=== PATIENT | female | born 1985 | race Asian ===

== ENCOUNTER 2017-03-21 21:39 | Emergency (ER) | payer OTHER ==
[2017-03-21 23:01] VITALS: BMI 24.0
[2017-03-22] MEDS ORDERED: FOLIC ACID INJECTION - 1 MG, THIAMINE HCL 100 MG, MULTIVIT INJECTION ADULT 10 ML in SOD... IVPB ONE (01:26)
[2017-03-22 01:42] LABS: MCH 28.2 pg (25.7-33.7); MEAN CELL VOLUME 85.7 fl (80-96); MEAN PLT VOLUME 7.6 fl (7.5-11.1); NEUTROPHILS 69.6 % (42.8-82.8); PLATELET COUNT 282 K/MM3 (134-434); RDW 13.7 % (11.6-15.6); WHITE BLOOD COUNT 10.1 K/mm3 (4.0-10.0)
[2017-03-22 02:24] LABS: ALBUMIN 3.5 g/dl (3.4-5.0); ALK PHOS 60 U/L (45-117); ANION GAP 14 (8-16); BILIRUBIN,TOTAL 0.8 mg/dL (0.2-1.0); CALCIUM 8.2 mg/dL (8.5-10.1); CO2 26 mmol/L (21-32); COCKROFT - GAULT 134.9375; CREATININE 0.6 mg/dL (0.55-1.02); GLUCOSE,RANDOM 90 mg/dL (74-106); SGOT/AST 332 U/L (15-37); SGPT/ALT 97 U/L (12-78); TOT PROT 6.9 g/dl (6.4-8.2)
[2017-03-22] MEDS ORDERED: POTASSIUM CHLORIDE 20 MEQ PREMIX IVPB 100 ML IVPB ONE (03:06)
--- NOTE | 2017-03-22 03:23 | PDOC ---
History of Present Illness - General Chief Complaint: Pain Stated Complaint: FOOT PAIN Time Seen by Provider: 03/21/17 23:57 - History of Present Illness Initial Comments: 03/22/17 03:20 CHIEF COMPLAINT: feet hurt HISTORY OF PRESENT ILLNESS: 31 yo F with no PMH presents to ED with foot pain and abdominal pain. Patient reports that she is homeless and has been walking for 2 days straight because she got lost looking for food after leaving the [facility]. She reports that she doesn't feel safe at the [facility] because she thinks she's going to be homeless again, and that she will need surgery for her mental illness "because that's what people say about me, that I have a mental illness and that I need a surgery on my head." She reports that most recently was staying at the [facility] and prior to that was at [facility]. She is tearful and states that her family "abandoned me." She reports that last time she drank alcohol was when she was 14 years old, and the last time she had sexual activity was also when she was [age] years old. She does feel depressed but denies any SI or HI. She states she would like to see a psychiatrist. No recent travel or sick contacts. PAST MEDICAL HISTORY: Denies past medical history FAMILY HISTORY: Denies SOCIAL HISTORY: Denies tobacco, alcohol, illicit drug use. SURGICAL HISTORY: Denies ALLERGIES: No known drug allergies REVIEW OF SYSTEMS General/Constitutional: Denies fever or chills. Denies weakness, weight change. HEENT: Denies change in vision. Denies ear pain or discharge. Denies sore throat. Cardiovascular: Denies chest pain or shortness of breath. Respiratory: Denies cough, wheezing, or hemoptysis. Gastrointestinal: "My stomach hurts in the middle." Denies nausea, vomiting, diarrhea or constipation. Denies rectal bleeding. Genitourinary: Denies dysuria, frequency, or change in urination. Musculoskeletal: Denies joint or muscle swelling or pain. Denies neck or back pain. Skin and breasts: "My feet hurt after walking for so long." PHYSICAL EXAM General Appearance: Disheveled, foul smelling. No apparent distress. HEENT: EOMI, PERRLA, normal ENT inspection, normal voice, TMs normal, pharynx normal. No conjunctival pallor. No photophobia, scleral icterus. Neck: Supple. Trachea midline. No tenderness, rigidity, carotid bruit, stridor , lymphadenopathy, or thyromegaly. Respiratory/Chest: Lungs CTAB. Cardiovascular: RRR. S1, S2. Vascular Pulses: Dorsalis-Pedis (R): 2+, Dorsalis-Pedis (L): 2+ Gastrointestinal/Abdominal: RUQ and epigastric tenderness on palpation. Normal bowel sounds. Abdomen soft, non-distended. No rebound tenderness. No organomegaly, pulsatile mass, guarding, hernia, splenomegaly. Musculoskeletal/Extremities: Erythema to heels bilaterally with blisters to right heel and callous to left heel. Normal inspection. FROM of all extremities , normal capillary refill. Pelvis Stable. No CVA tenderness. No tenderness to extremities, pedal edema, swelling, erythema or deformity. Integumentary: Appropriate color, dry, warm. No cyanosis, erythema, jaundice or rash Neurologic: knit goods washer II-XII intact. Fully oriented, alert. Appropriate mood/affect. Motor strength 5/5. No appreciable EOM palsy, facial droop or sensory deficit. Psychiatric: Tearful, depressed affect. Timing/Duration: unsure Past History - Past Medical History Allergies/Adverse Reactions: Allergies Allergy/AdvReac Type Severity Reaction Status Date / Time No Known Allergies Allergy Verified 03/21/17 22:59 Home Medications: Ambulatory Orders NK [No Known Home Medication] 03/22/17 - Psycho/Social/Smoking Cessation Hx Suicidal Ideation: No Smoking History: Unknown if ever smoked Information on smoking cessation initiated: No Hx Alcohol Use: No Drug/Substance Use Hx: No *Physical Exam - Vital Signs Last Vital Signs Temp Pulse Resp BP Pulse Ox 98.4 F 109 H 14 116/56 96 03/21/17 22:59 03/21/17 22:59 03/21/17 22:59 03/21/17 22:59 03/21/17 22:59 ED Treatment Course - LABORATORY CBC & Chemistry Diagram: 03/22/17 01:30 03/22/17 07:50 - ADDITIONAL ORDERS Additional order review: Laboratory Results 03/22/17 03/22/17 01:30 01:30 Sodium 141 Potassium 2.7 L* Chloride 101 Carbon Dioxide 26 Anion Gap 14 BUN 14 Creatinine 0.6 Creat Clearance w eGFR > 60 Random Glucose 90 Calcium 8.2 L Total Bilirubin 0.8 AST 332 H ALT 97 H Alkaline Phosphatase 60 Total Protein 6.9 Albumin 3.5 Lipase 107 Serum , Qual Negative 03/22/17 01:30 RBC 4.05 MCV 85.7 MCHC 33.0 RDW 13.7 MPV 7.6 Neutrophils % 69.6 Lymphocytes % 18.7 Monocytes % 6.7 Eosinophils % 4.0 Basophils % 1.0 - RADIOLOGY Radiology Studies Ordered: Category Date Time Status FOOT-LEFT [RAD] Stat Radiology 03/22/17 01:22 Taken FOOT-RIGHT [RAD] Stat Radiology 03/22/17 01:22 Taken Medical Decision Making - Medical Decision Making 03/22/17 06:16 31 yo F with no PMH presents to ED with foot pain and abdominal pain. -CBC, CMP, lipase -b/l foot x-ray Labs: WBC 10.9, K+ 2.7, AST 332, ALT 97 -KCl IVPB and oral -Abdomen and pelvis CT CT results: FINDINGS: Normal liver except for probable tiny cyst at the dome. Contracted gallbladder. Normal pancreas. Normal spleen. Normal adrenal glands. Normal kidneys urinary tracts and urinary bladder. No bowel obstruction free air or free fluid. Negative for diverticulitis or colitis. Normal appendix noted. No acute intra-abdominal abnormalities. Read by: Sky Gupta MD Psych and social work consult am. 03/22/17 06:46 Case discussed in detail with oncoming emergency provider including history, physical exam and ancillary studies. In brief, this patient is being seen in the ED for a chief complaint of: foot pain, abdominal pain I have completed the initial assessment interview note and have ordered the following labs: CBC, CMP, lipase I have reviewed the following results: labs Pending results: repeat CMP, psych/social work consult Plan for disposition as follows: discharge Oncoming WINSTONPaz Ta has assumed care for the patient and will complete the evaluation and treatment. *DC/Admit/Observation/Transfer Diagnosis at time of Disposition: Homelessness - Discharge Dispostion Disposition: HOME Condition at time of disposition: Good - Patient Instructions Additional Instructions: Discharge Instructions: -Return to the ER with any worsening or concerning symptoms
[2017-03-22] MEDS ORDERED: KCL 10 MEQ IVPB 100 ML IVPB ONE (03:31)
[2017-03-22] MEDS ORDERED: POTASSIUM CHLORIDE TABS 20 MEQ TABLET.ER (FP) PO ONE ×2 (05:02→05:39)
[2017-03-22] MEDS ORDERED: ONDANSETRON *ODT* 4 MG TABLET ONE (05:39)
--- NOTE | 2017-03-22 07:46 | PDOC ---
[id number] 116/56 96 03/21/17 22:59 03/21/17 22:59 03/21/17 22:59 03/21/17 22:59 03/21/17 22:59 ED Treatment Course - LABORATORY CBC & Chemistry Diagram: 03/22/17 01:30 03/22/17 07:50 - ADDITIONAL ORDERS Additional order review: Laboratory Results 03/22/17 03/22/17 01:30 01:30 Sodium 141 Potassium 2.7 L* Chloride 101 Carbon Dioxide 26 Anion Gap 14 BUN 14 Creatinine 0.6 Creat Clearance w eGFR > 60 Random Glucose 90 Calcium 8.2 L Total Bilirubin 0.8 AST 332 H ALT 97 H Alkaline Phosphatase 60 Total Protein 6.9 Albumin 3.5 Lipase 107 Serum , Qual Negative 03/22/17 01:30 RBC 4.05 MCV 85.7 MCHC 33.0 RDW 13.7 MPV 7.6 Neutrophils % 69.6 Lymphocytes % 18.7 Monocytes % 6.7 Eosinophils % 4.0 Basophils % 1.0 - Medications Given in the ED: ED Medications Discontinued Medications Generic Name Dose Route Start Last Admin Trade Name Freq PRN Reason Stop Dose Admin Potassium Chloride 20 meq 03/22/17 03:06 03/22/17 03:38 Potassium Chloride 20 Meq Premix Ivpb - IVPB 03/22/17 03:07 20 meq ONCE ONE Administration Potassium Chloride 40 meq 03/22/17 05:02 03/22/17 05:51 K-Dur - PO 03/22/17 05:03 40 meq ONCE ONE Administration Medical Decision Making - Medical Decision Making 03/22/17 07:46 Patient received in sign out from WINSTON Bustamante. Patient awaiting geriatric social work professor, psychiatrist and repeat potassium secondary to potassium of 2.7 and was given Replacement. Dr. Ashraf had called and feels patient needs to be seen by a geriatric social work professor since patient is not homicidal, suicidal, feeling hopeless, or hearing voices. 03/22/17 08:44 I went to evaluate this patient myself and not only does her life story seem distorted but also her stated she just 23 despite her date of being 31 which she states is her date of . Patient also states disclosed after much questioning that she used to be on Lamictal, Risperdal, and Zyprexa. Patient is disheveled, blisters to the bottom of her feet, soiled underwear, and has uncut nails. I do believe this patient this point needs psychiatric evaluation and placement. As we discussed case with Dr. Ashraf and states he will evaluate patient at around 1:30 pm. 03/22/17 09:01 Laboratory Tests 03/22/17 07:50 Sodium 140 Potassium 3.5 D Chloride 105 Carbon Dioxide 26 Anion Gap 9 BUN 16 Creatinine 0.5 L Random Glucose 117 H D Calcium 8.3 L Total Bilirubin 0.7 AST 411 H D ALT 110 H 03/22/17 10:41 Patient awaiting geriatric social work professor for evaluation. Patient will be given a tray of food and will be be given socks and new underwear. 03/22/17 15:04 Patient was seen by Dr. Kunz who feels patient needs to return to her program at [facility]. Call made to the geriatric social work professor to arrange transportation since he feels patient is not harmful to herself or others. 03/22/17 15:38 protective services case worker aware of [facility] in [place] and will attempt to arrange transportation 03/22/17 18:01 Called case management and left a message on the voicemail. Also called geriatric social work professor to find out status of transportation with no callback. Patient currently resting and in no distress. Will repeat vitals. *DC/Admit/Observation/Transfer Diagnosis at time of Disposition: Homelessness - Discharge Dispostion Disposition: HOME Condition at time of disposition: Good - Patient Instructions Additional Instructions: Discharge Instructions: -Return to the ER with any worsening or concerning symptoms
[2017-03-22 08:29] LABS: ALBUMIN 3.6 g/dl (3.4-5.0); ALK PHOS 56 U/L (45-117); ANION GAP 9 (8-16); BILIRUBIN,TOTAL 0.7 mg/dL (0.2-1.0); CALCIUM 8.3 mg/dL (8.5-10.1); CO2 26 mmol/L (21-32); CREATININE 0.5 mg/dL (0.55-1.02); GLUCOSE,RANDOM 117 mg/dL (74-106); SGPT/ALT 110 U/L (12-78); TOT PROT 6.7 g/dl (6.4-8.2)
[2017-03-22 08:36] LABS: SGOT/AST 411 U/L (15-37)
--- NOTE | 2017-03-22 11:31 | EKG ---
Test Reason : Blood Pressure : / mmHG Vent. Rate : 095 BPM Atrial Rate : 095 BPM P-R Int : 146 ms QRS Dur : 090 ms QT Int : 406 ms P-R-T Axes : 052 058 025 degrees QTc Int : 510 ms NORMAL SINUS RHYTHM T WAVE ABNORMALITY, CONSIDER ANTERIOR ISCHEMIA PROLONGED QT ABNORMAL ECG NO PREVIOUS ECGS AVAILABLE Confirmed by EDNA LOZANO MD ([id number]) on 03/22/2017 11:31:08 AM Referred By: Confirmed By:EDNA LOZANO MD
--- NOTE | 2017-03-22 15:07 | CON.PSY ---
Psychiatry Consult Chief Complaint: Patient wioth a history of chronic mental illness, recently discharged from [facility]. Leilani westbrook been at [facility] and went to [facility] and got lost, Patient denies any acute commanding hallucinations at this time. [facility] - Previous Psychiatric Treatment Outpatient: Less than 6 mos ago Inpatient: 2 or more prior admissions - Previous Substance Abuse Treatment Outpatient: None Inpatient: None - Reason for Previous Treatment Reason for Previous Treatment: Psychotic Episode - Allergies Allergies: Allergies Allergy/AdvReac Type Severity Reaction Status Date / Time No Known Allergies Allergy Verified 03/21/17 22:59 - Current Living Status Usual Living Arrangement: Assisted Living - Current Mental Status Evaluation Appearance: Disheveled Attitude: Guarded - Affect Affect: Constrictive Appropriateness: Appropriate to Content - Mood Mood: Anxious - Speech/Language Expressive: Coherent Receptive: Age Appropriate Comprehension of Spoken Words - Psychomotor Activity Psychomotor Activity: Slowed - Thought Process Thought Process: Intact - Thought Content Hallucinations: Absent Delusions: Absent - Self Perception Self Perception: No Impairment - Cognition Attention: Alert Orientation: Time Memory, Immediate Recall: Intact Memory, Short Term: 2/3 Memory, Remote with Promptin/3 - Concentration Serial Sevens Intact: No Simple Calculations Intact: No - Abstraction Proverb Interpretation: Impaired Judgement: Minimally Impaired - Insight Insight: Impaired - Impulse Control Impulse Control: Minimally Impaired - Suicidal Ideation Suicidal Ideation: No - Homicidal Ideation Homicidal Ideation: No Assessment/Plan 1) Patient is not acutely suicidal or Homicidal at this time. 2) Send patient back [facility].
--- NOTE | 2017-03-23 07:53 | PDOC ---
ED Treatment Course - LABORATORY CBC & Chemistry Diagram: 03/22/17 01:30 03/22/17 07:50 - ADDITIONAL ORDERS Additional order review: 03/22/17 01:30 RBC 4.05 MCV 85.7 MCHC 33.0 RDW 13.7 MPV 7.6 Neutrophils % 69.6 Lymphocytes % 18.7 Monocytes % 6.7 Eosinophils % 4.0 Basophils % 1.0 - Medications Given in the ED: ED Medications Discontinued Medications Generic Name Dose Route Start Last Admin Trade Name Jose Luis PRN Reason Stop Dose Admin Folic Acid 1 mg/ Thiamine HCl 1,000 mls @ 125 mls/hr 03/22/17 01:26 03/22/17 02 :22 100 mg/ Multivitamins/Minerals IVPB 03/22/17 09:25 125 mls/hr 10 ml/ Sodium Chloride ONCE ONE Administration Potassium Chloride 20 meq 03/22/17 03:06 03/22/17 03:38 Potassium Chloride 20 Meq Premix Ivpb - IVPB 03/22/17 03:07 20 meq ONCE ONE Administration Potassium Chloride 40 meq 03/22/17 05:02 03/22/17 05:51 K-Dur - PO 03/22/17 05:03 40 meq ONCE ONE Administration Progress Note - Progress Note Progress Note: I have received report from WINSTON Bustamante regarding this patient. Pt's initial chief complaint: foot and abd pain. Pt's work up completed prior to sign out: labs, EKG, CT abd/pelvis Pt treatment given from prior staff: Potassium Pt plan to be completed: Awaiting social work consult Dispo: Pending Medical Decision Making - Medical Decision Making A/P: 31 y/o homeless female who is awaiting social work consult. Apparently director of social services saw her yesterday and it trying to find her a long-term but haven't yet. Plan is to have another director of social services consult today. The patient does have a spot at a homeless long-term. A cab is coming to pick her up and bring her to the long-term. The patient will be discharged. SHe was instructed to return to the ER with any worsening or concerning symptoms *DC/Admit/Observation/Transfer Diagnosis at time of Disposition: Homelessness - Discharge Dispostion Disposition: HOME Condition at time of disposition: Good - Patient Instructions Additional Instructions: Discharge Instructions: -Return to the ER with any worsening or concerning symptoms
[2017-03-23 08:27] VITALS: BP 97/56; PULSE 76; TEMP 98.1
== END 2017-03-23 10:12 | disposition home or self-care (01) ==
LOC: JER 21:39
PROC: 3E033GC Introduction of Other Therapeutic Substance into Peripheral Vein, Percutaneous Approach (ICD-10-PCS; principal; 2017-03-21)
PROC: 3E0337Z Introduction of Electrolytic and Water Balance Substance into Peripheral Vein, Percutaneous Approach (ICD-10-PCS; 2017-03-21)
DX: R10.11 Right upper quadrant pain (principal); E87.6 Hypokalemia; R10.13 Epigastric pain; Z59.0 Homelessness
CPT/HCPCS: 36415; 73630-TC-LT; 73630-TC-RT; 74176-TC; 80053; 80074; 83690; 84703; 85025; 93005; 93010; 99284-25